=== PATIENT | female | born 1995 | race African-American/Black ===

== ENCOUNTER 2018-06-25 19:15 | Emergency (ER) | payer OTHER ==
[~2018-06-25] VITALS: Ht 165.1 cm; Wt 63.5 kg
[2018-06-25 19:40] LABS: URINE BILIRUBIN NEGATIVE (Negative); URINE BLOOD NEGATIVE (Negative); URINE CLARITY CLEAR; URINE COLOR YELLOW; URINE GLUCOSE-RANDOM* NEGATIVE (Negative); URINE KETONES NEGATIVE (Negative); URINE LEUKOCYTES-REFLEX NEGATIVE (Negative); URINE NITRITE-REFLEX NEGATIVE (Negative); URINE PROTEIN (DIPSTICK) NEGATIVE (Negative); URINE UROBILINOGEN 0.2 E.U./dl (0.2-1.0)
[2018-06-25 20:10] LABS: ABSOLUTE NEUTROPHILS 6.5 thou/uL (1.4-8.2); BASOPHILS 0.6 % (0.0-2.0); EOSINOPHILS 5.9 % (0.0-3.0); HEMATOCRIT 38.8 % (37.0-47.0); LYMPHOCYTES 26.1 % (24.0-44.0); MCH 29.4 pg (26.0-34.0); MCHC 33.5 g/dL (28.0-37.0); MCV 87.6 fL (80.0-100.0); MONOCYTES 6.9 % (1.0-8.0); PLATELET COUNT 236 thou/uL (150-400); POLYS 60.5 % (36.0-66.0); RBC 4.43 mil/uL (4.20-5.00); RDW 12.6 % (10.5-14.5); WBC 10.8 thou/uL (4.0-11.0)
[2018-06-25 20:13] LABS: CALCIUM 9.8 mg/dL (8.5-10.1); CREATININE 0.9 mg/dL (0.6-1.0); POTASSIUM 3.9 mmol/L (3.5-5.1)
[2018-06-25] MEDS ORDERED: NOHOMEMEDICATIONS (21:22)
[2018-06-25] MEDS ORDERED: NAPROSYN500 MG PO (21:29)
[2018-06-25] MEDS ORDERED: FLAGYL500 MG PO (21:29)
[2018-06-25 21:43] VITALS: BP 108/57
== END 2018-06-25 21:43 | disposition home or self-care (01) ==
LOC: ER 19:15
PROVIDERS: Emergency Medicine; Physician Assistant
DX: N76.0 Acute vaginitis (principal); B96.89 Other specified bacterial agents as the cause of diseases classified elsewhere; F17.210 Nicotine dependence, cigarettes, uncomplicated; Z88.1 Allergy status to other antibiotic agents